=== PATIENT | female | born 1960 | race Caucasian/White ===

== ENCOUNTER → 2017-03-11 | Day surgery (SDC) | payer BC ==
[~2017-03-11] MED LIST: BALANCED SALT SOLN (OPTH) 15 ML BTL IO ONE; GELATIN SPONGE 12-7MM ONE; LIDOCAINE 2% /EPINEPHRINE 20 ML SDV INJ ONE; LIDOCAINE HCL 2% LOCAL INJ 5 ML SDV VIAL INJ ONE; MIDAZOLAM HCL 2 MG/2 ML VIAL ONE; NEOMYCIN/POLYMYXIN/DEX (OPTH) 3.5 GM TUBE ONE; PROPOFOL IV EMULSION 10 MG/ML 20 ML VIAL ONE; VITAMIN B-121000 MCG PO
== END | disposition home or self-care (01) ==
LOC: OR 10:32
PROVIDERS: ATTEND Ophthalmology
DX: H02.834 Dermatochalasis of left upper eyelid (principal); H02.831 Dermatochalasis of right upper eyelid; K21.9 Gastro-esophageal reflux disease without esophagitis
CPT/HCPCS: 15823; J2001 ×2; J2250